=== PATIENT | female | born 1965 ===

== ENCOUNTER 2022-03-08 07:59 | Outpatient (CLI) | payer BC, SELFPAY ==
--- NOTE | 2022-03-08 08:15 | CRLHL7_ITS ---
For Patients: As a result of the Century Cures Act, medical imaging exams and procedure reports are released immediately into your electronic medical record. You may view this report before your referring provider. If you have questions, please contact your health care provider. BILATERAL SCREENING MAMMOGRAM WITH COMPUTER-AIDED DETECTION AND TOMOSYNTHESIS TECHNIQUE: CC and MLO views were obtained. These mammographic images have been obtained using full-field digital technique. These mammographic images were interpreted with the benefit of computer-aided detection. Breast Tomosynthesis was used in this interpretation. COMPARISON FILM: 11/03/20, 09/26/19, 05/17/18. FINDINGS: The breasts are heterogeneously dense, which may obscure small masses IMPRESSION: There is no radiographic evidence for malignancy. ASSESSMENT: BI-RADS Category 2: Benign RECOMMENDATION: Routine screening mammogram in 1 year. A lay language report of this examination will be provided to the patient. Jorden Osorio M.D. Diagnostic Radiologist [email or web address] SIMBA/juanjose Transcribed: 2:31 p.timothy sow/Dictated by: Jorden Osorio MD @ 03/08/2022 11:23:00 AM (Electronically Signed)
== END 2022-03-08 08:00 | disposition home or self-care (01) ==
PROVIDERS: PCP Internal Medicine; Visit Provider Internal Medicine
DX: Z12.31 Encounter for screening mammogram for malignant neoplasm of breast (principal); R92.2 Inconclusive mammogram
CPT/HCPCS: 77063; 77067

== ENCOUNTER 2022-03-10 08:11 | Outpatient (CLI) | payer BC, SELFPAY ==
[2022-03-10 10:03] LABS: Cholesterol* 171 mg/dL (90-199); Glucose* 102 mg/dL (60-115)
[2022-03-10 10:04] LABS: HDL Cholesterol* 48 mg/dL (>=50); LDL Cholesterol Calculated 103 mg/dL (<100); Triglycerides* 101 mg/dL (40-149)
[2022-03-10 10:25] LABS: TSH With Reflex to FT4* < 0.015 uIU/mL (0.270-4.200)
[2022-03-10 10:54] LABS: Free T4 Free Thyroxine* 1.71 ng/dL (0.70-1.85)
== END 2022-03-10 08:12 | disposition home or self-care (01) ==
LOC: NFLDREF 08:11
PROVIDERS: PCP Internal Medicine; Visit Provider Internal Medicine
DX: E03.9 Hypothyroidism, unspecified (principal); R73.03 Prediabetes; Z13.6 Encounter for screening for cardiovascular disorders
CPT/HCPCS: 80061; 82947; 84439; 84443

== ENCOUNTER 2022-05-16 07:55 | Outpatient (CLI) | payer BC, SELFPAY | END 2022-05-16 07:56 | disposition home or self-care (01) | LOC: OP CLINIC 07:55 | PROVIDERS: PCP Internal Medicine; Visit Provider Surgery | DX: Z12.11 Encounter for screening for malignant neoplasm of colon (principal); K63.5 Polyp of colon; Z83.71 Family history of colonic polyps | CPT/HCPCS: 45381; 45385; 88305; 99153; J2250; J3010 ==

== ENCOUNTER 2022-06-13 09:35 | Outpatient (CLI) | payer BC, SELFPAY | END 2022-06-13 09:36 | disposition home or self-care (01) | LOC: NFLDREF 06-14 10:59 | PROVIDERS: PCP Internal Medicine; Referring Provider Internal Medicine; Visit Provider Internal Medicine | DX: E03.9 Hypothyroidism, unspecified (principal) | CPT/HCPCS: 84439; 84443 ==

== ENCOUNTER 2022-09-11 09:21 | Outpatient (CLI) | payer BC, SELFPAY | END 2022-09-11 09:22 | disposition home or self-care (01) | LOC: NFLDREF 09-12 11:02 | PROVIDERS: PCP Internal Medicine; Referring Provider Internal Medicine; Visit Provider Internal Medicine | DX: E03.9 Hypothyroidism, unspecified (principal) | CPT/HCPCS: 84443 ==

== ENCOUNTER 2023-05-11 12:54 | Outpatient (CLI) | payer BC, SELFPAY ==
--- NOTE | 2023-05-11 13:00 | MM_ITS ---
Patient: LIZ BOURGEOIS Facility:?[facility] Patient ID:?[id number] Site Patient ID:?[id number]. Site :?[id number] Study:?XRay-Breast Bilateral 3D screening mammogram w/cad-05/11/2023 2:31:16 PM Ordering Physician:BLANCA Final Report: BILATERAL SCREENING MAMMOGRAM WITH COMPUTER-AIDED DETECTION AND TOMOSYNTHESIS TECHNIQUE: CC and MLO views were obtained. These mammographic images have been obtained using full-field digital technique. These mammographic images were interpreted with the benefit of computer-aided detection. Breast Tomosynthesis was used in this interpretation. COMPARISON FILM: 03/08/22, 11/03/20, 09/26/19. FINDINGS: The breasts are heterogeneously dense, which may obscure small masses IMPRESSION: There is no radiographic evidence for malignancy. ASSESSMENT: BI-RADS Category 2: Benign RECOMMENDATION: Routine screening mammogram in 1 year. A lay language report of this examination will be provided to the patient. Jorden Osorio M.D. Diagnostic Radiologist [email or web address] SIMBA/ashu / be/Dictated by: Jorden Osorio MD @ 05/15/2023 11:54:00 AM Signed by:?Jorden Osorio MD @05/15/2023 7:15:47 PM (Electronic Signature)
== END 2023-05-11 12:55 | disposition home or self-care (01) ==
LOC: MAMMO 12:55
PROVIDERS: PCP Internal Medicine; Visit Provider Internal Medicine
DX: Z12.31 Encounter for screening mammogram for malignant neoplasm of breast (principal); R92.2 Inconclusive mammogram
CPT/HCPCS: 77063; 77067

== ENCOUNTER 2023-05-23 10:00 | Outpatient (CLI) | payer BC, SELFPAY | END 2023-05-23 10:01 | disposition home or self-care (01) | LOC: NFLDREF 05-28 07:02 | PROVIDERS: PCP Internal Medicine; Referring Provider Internal Medicine; Visit Provider Internal Medicine | DX: Z00.00 Encounter for general adult medical examination without abnormal findings (principal); E03.9 Hypothyroidism, unspecified; R73.03 Prediabetes | CPT/HCPCS: 82947; 84443 ==

== ENCOUNTER 2023-07-31 08:15 | Outpatient (RCR) | payer BC, SELFPAY | END 2023-10-30 16:25 | disposition home or self-care (01) | PROVIDERS: PCP Internal Medicine; Visit Provider Orthopaedic Surgery | DX: M25.561 Pain in right knee (principal); R29.898 Other symptoms and signs involving the musculoskeletal system; Z51.89 Encounter for other specified aftercare | CPT/HCPCS: 97110; 97140; 97162 ==

== ENCOUNTER 2024-05-15 10:13 | Outpatient (CLI) | payer BC, SELFPAY ==
--- NOTE | 2024-05-15 10:15 | CRLHL7_ITS ---
For Patients: As a result of the Century Cures Act, medical imaging exams and procedure reports are released immediately into your electronic medical record. You may view this report before your referring provider. If you have questions, please contact your health care provider. BILATERAL DIGITAL SCREENING MAMMOGRAM WITH COMPUTER-AIDED DETECTION AND TOMOSYNTHESIS CLINICAL HISTORY: Routine screening exam. COMPARISON: 05/11/23, 03/08/22, 11/03/20. TECHNIQUE: Digital mammogram in CC and MLO projections including computer-aided detection (CAD). Tomosynthesis was used in this interpretation. BREAST COMPOSITION: The breasts are heterogeneously dense, which may obscure small masses. FINDINGS: RIGHT Breast: Nodular density within the upper-outer quadrant 5 cm from the nipple. LEFT Breast: No suspicious findings. IMPRESSION: RIGHT breast asymmetry/mass. RECOMMENDATIONS: Additional mammographic views of the RIGHT breast including 3D spot compression CC/MLO. RIGHT breast ultrasound may also be required. The [facility] will contact the patient. A lay language report of this examination will be provided to the patient. BI-RADS Category 0: Incomplete: Need Additional Imaging Evaluation Dictated by Jorden Osorio MD @ 05/15/2024 11:22:57 AM j/Dictated by: Jorden Osorio MD @ 05/15/2024 11:22:00 AM (Electronically Signed)
== END 2024-05-15 10:14 | disposition home or self-care (01) ==
LOC: MAMMO 10:13
PROVIDERS: PCP Internal Medicine; Visit Provider Internal Medicine
DX: Z12.31 Encounter for screening mammogram for malignant neoplasm of breast (principal); N63.10 Unspecified lump in the right breast, unspecified quadrant; R92.333 Mammographic heterogeneous density, bilateral breasts
CPT/HCPCS: 77063; 77067

== ENCOUNTER 2024-05-19 08:34 | Outpatient (CLI) | payer BC, SELFPAY ==
--- NOTE | 2024-05-19 08:45 | CRLHL7_ITS ---
For Patients: As a result of the Century Cures Act, medical imaging exams and procedure reports are released immediately into your electronic medical record. You may view this report before your referring provider. If you have questions, please contact your health care provider. DIGITAL DIAGNOSTIC RIGHT MAMMOGRAM USING TOMOSYNTHESIS AND COMPUTER-AIDED DETECTION RIGHT BREAST ULTRASOUND CLINICAL HISTORY: RIGHT breast mass/asymmetry. COMPARISON: 05/15/24, 05/11/23, 03/08/22. TECHNIQUE: Digital RIGHT mammogram in two projections. Tomosynthesis was used in this interpretation. Real-time ultrasound imaging of RIGHT breast with imaging documentation. BREAST COMPOSITION: The breasts are heterogeneously dense, which may obscure small masses. FINDINGS: 3D spot compression CC/MLO RIGHT breast mammogram images submitted. Decreased conspicuity of the previously noted nodular density on the MLO view. Persistent nodular density on the CC view. No architectural distortion or suspicious calcifications. Targeted RIGHT breast ultrasound performed 9 o`clock 4 cm from the nipple. In this location, there is a simple anechoic circumscribed cyst with increased through-transmission. This measures 8 x 5 x 8 millimeters. No abnormal vascularity. IMPRESSION: Simple cyst RIGHT breast 9 o`clock 4 cm from the nipple measuring 8 millimeters. No suspicious findings. No evidence of malignancy. RECOMMENDATIONS: Routine screening mammography. A lay language report of this examination will be provided to the patient. BI-RADS Category 2: Benign Dictated by Jorden Osorio MD @ 05/19/2024 9:38:16 AM jj/Dictated by: Jorden Osorio MD @ 05/19/2024 9:38:00 AM (Electronically Signed)
--- NOTE | 2024-05-19 09:15 | CRLHL7_ITS ---
For Patients: As a result of the Cures Act, medical imaging exams and procedure reports are released immediately into your electronic medical record. You may view this report before your referring provider. If you have questions, please contact your health care provider. SEE DIGITAL DIAGNOSTIC RIGHT MAMMOGRAM PERFORMED SAME DAY CRL:juanjose sow/Dictated by: Jorden Osorio MD @ 05/19/2024 9:38:00 AM (Electronically Signed)
== END 2024-05-19 08:35 | disposition home or self-care (01) ==
LOC: MAMMO 08:35
PROVIDERS: PCP Internal Medicine; Visit Provider Internal Medicine
DX: N63.10 Unspecified lump in the right breast, unspecified quadrant (principal); N60.01 Solitary cyst of right breast; R92.333 Mammographic heterogeneous density, bilateral breasts
CPT/HCPCS: 76642; 77065; G0279

== ENCOUNTER 2024-05-29 08:07 | Outpatient (CLI) | payer BC, SELFPAY | END 2024-05-29 08:08 | disposition home or self-care (01) | LOC: NFLDREF 05-30 03:19 | PROVIDERS: PCP Internal Medicine; Referring Provider Internal Medicine; Visit Provider Internal Medicine | DX: R73.03 Prediabetes (principal); E03.9 Hypothyroidism, unspecified | CPT/HCPCS: 82947; 84439; 84443 ==